=== PATIENT | male | born 1955 | race Hispanic/Latino ===

== ENCOUNTER 2020-07-21 08:10 | Outpatient (CLI) | payer MEDICARE ==
[2020-07-21 10:40] LABS: Basophils # (Auto) 0.1 K/mm3 (0.0-0.1); Basophils % (Auto) 0.5 % (0.0-1.8); Eosinophils # (Auto) 0.1 K/mm3 (0.0-0.4); Hematocrit 45.9 % (35.5-45.6); Hemoglobin 15.8 gm/dl (11.8-15.2); Lymphocytes # (Auto) 3.8 K/mm3 (1.2-5.4); Lymphocytes % (Auto) 25.3 % (13.4-35.0); Mean Corpuscular HGB Conc 34 % (32-34); Mean Corpuscular Volume 99 fl (84-94); Monocytes # (Auto) 1.4 K/mm3 (0.0-0.8); Monocytes % (Auto) 9.7 % (0.0-7.3); Platelet Count 217 K/mm3 (140-440); Red Blood Count 4.66 M/mm3 (3.65-5.03); Red Cell Distribution Width 13.9 % (13.2-15.2)
[2020-07-21 10:54] LABS: Alanine Aminotransferase 16 units/L (7-56); Albumin 4.1 g/dL (3.9-5); BUN/Creatinine Ratio 17; Blood Urea Nitrogen 15 mg/dL (9-20); Calcium 8.9 mg/dL (8.4-10.2); Hemolysis Index 7
--- NOTE | 2020-07-21 10:55 | PET Report ---
PET-CT SCAN INDICATION / CLINICAL INFORMATION: Lung cancer. STAGING: Initial Staging TECHNIQUE: Tumor imaging, positron emission tomography (PET) with concurrently acquired computed tomography (CT) for attenuation correction and anatomical localization; Skull Base to Mid Thigh - DOSE: 14.917 mCi F-18 FDG was administered IV per protocol - GLUCOSE: Patient's blood glucose at that time was (mg/dL): 92 - [place] TIME: PET scan performed approximately 60 minutes after radiotracer administration. - CT SCAN DESCRIPTION: No oral or IV contrast. All CT scans at this location are performed using CT d ose reduction for [employer] by means of automated exposure control. COMPARISON: No relevant prior imaging study available for comparison. FINDINGS: HEAD / NECK: No abnormal radiotracer uptake in the neck. No significant CT abnormality. CHEST: No abnormal radiotracer uptake in the chest. There is severe emphysema with bilateral upper lo be scarring. Moderate coronary atherosclerosis is noted, status post CABG. ABDOMEN / PELVIS: No abnormal radiotracer uptake in the abdomen. There is an uncomplicated moderate r ight inguinal hernia containing fat and nondilated small bowel loops. Colonic diverticulosis is noted without evidence of diverticulitis. There is moderate generalized atherosclerosis. An infrarenal abd ominal aortic aneurysm measures 3.6 cm without an associated complication. LOWER EXTREMITIES: No abnormal radiotracer uptake in the visualized lower extremities. No significant CT abnormality. SKELETAL STRUCTURES: No hypermetabolic bone lesions. No significant CT abnormality. ADDITIONAL FINDINGS: No additional significant findings. IMPRESSION: 1. No FDG avid neoplastic disease. 2. Additional findings as above. Signer Name: Clifford Garza MD Signed: 07/21/2020 10:50 AM Workstation Name: [id number]
[2020-07-21 12:07] LABS: ABG Base Excess -3.5 mmol/L (-2.0-3.0); ABG HCO3 20.1 mmol/L (20.0-26.0); ABG Methemoglobin 0.4 % (0.0-1.5); ABG Oxygen Saturation 98.3 % (95.0-99.0); ABG PCO2 32.8 mm Hg; ABG PH 7.405 pH Units (7.350-7.450); ABG PO2 118.4 mm Hg (80.0-90.0)
== END 2020-07-21 08:11 | disposition home or self-care (01) ==
LOC: PET 08:10
PROVIDERS: ATTEND Internal Medicine
DX: C34.90 Malignant neoplasm of unspecified part of unspecified bronchus or lung (principal); K40.90 Unilateral inguinal hernia, without obstruction or gangrene, not specified as recurrent; K57.30 Diverticulosis of large intestine without perforation or abscess without bleeding; I10 Essential (primary) hypertension; E78.00 Pure hypercholesterolemia, unspecified; J30.9 Allergic rhinitis, unspecified; I25.10 Atherosclerotic heart disease of native coronary artery without angina pectoris; J43.8 Other emphysema; I70.0 Atherosclerosis of aorta; I72.2 Aneurysm of renal artery; I71.4 Abdominal aortic aneurysm, without rupture
CPT/HCPCS: 36415; 78815; 80053; 82803; 82962; 85025; A9552